=== PATIENT | male | born 1980 | race Caucasian/White ===

== ENCOUNTER 2018-09-06 13:18 | Emergency (ER) | payer MEDICAID, OTHER ==
[2018-09-06 13:36] VITALS: BP 140/77
--- NOTE | 2018-09-06 14:10 | UC ---
Dental HPI - HPI Summary HPI Summary: Pt presents to reporting dental pain right lower jaw. Pt with h/o ppor dentition and infections;. Pt will get dental insurance starting 09/11/2018 Pt denies fevers, chills. Pt has been taking ibuprofen and ambusol. no difficulty with swallowing. no ear pain. no fever, chills. no intraoral edema. pt's medications reviewed this visit - History of Current Complaint Chief Complaint: UCDentalProblem Stated Complaint: ORAL COMPLAINT Time Seen by Provider: 09/06/18 13:43 Hx Obtained From: Patient Pain Intensity: 3 - Allergies/Home Medications Allergies/Adverse Reactions: Allergies Allergy/AdvReac Type Severity Reaction Status Date / Time No Known Allergies Allergy Verified 09/06/18 13:31 Home Medications: Home Medications Benzocaine [Anbesol Maximum Strength] 1 applic MT SEE INSTRUCTIONS PRN 09/06/18 [History Confirmed 09/06/18] Ibuprofen TAB* [Advil TAB*] 800 mg PO Q8H PRN 09/06/18 [History Confirmed ] PMH/Surg Hx/FS Hx/Imm Hx Previously Healthy: Yes - Surgical History Surgical History: Yes Surgery Procedure, Year, and Place: Appendectomy, 1985, [place] - Family History Known Family History: Positive: Other - noncontributory - Social History Occupation: Employed Full-time Lives: With Family Alcohol Use: None Substance Use Type: None Smoking Status (MU): Heavy Every Day Tobacco Smoker Type: Cigarettes Amount Used/How Often: 1 - 1 1/2 PPD Length of Time of Smoking/Using Tobacco: Since Age 11 Have You Smoked in the Last Year: Yes - Immunization History Most Recent Tetanus Shot: 08/26/14 Review of Systems Constitutional: Negative Skin: Negative ENT: Dental Pain All Other Systems Reviewed And Are Negative: Yes Physical Exam - Summary Physical Exam Summary: Vital Signs Reviewed: Yes A+Ox3, no distress Eyes: Conjunctiva Clear, RONALD, EOM intact and full ENT: Hearing grossly normal TM x 2 clear turbinates wnl no TMJ pain, no mastoid pain Pt with poor dentition + TTP #31 broken at gumline with obvious cavity. no fluctuance no erythema no drainage + TTP neck: supple Respiratory: Positive: No respiratory distress, No accessory muscle use Cardiovascular: skin color reflect adequate perfusion Musculoskeletal Exam: WALTON x 4 without difficulty Neurological: Positive: Alert, ambulatory without difficulty Psychological: Positive: Normal Response To Family Skin: Positive: no rash, no ecchymosis Triage Information Reviewed: Yes Vital Signs: Initial Vital Signs Temp 97.1 F 09/06/18 13:30 Pulse 87 09/06/18 13:30 Resp 16 09/06/18 13:30 BP 140/77 09/06/18 13:30 Pulse Ox 99 09/06/18 13:30 Dental Complaint Course/Dx - Course Course Of Treatment: Pt with progressive dental pain x 1 week. Pt with poor dentition - getting insurance next week. Pt wit pain #31. no toxic appearing. Will start pcn. motrin/apap. swish/spit viscous lidocaine. dental list. return precaution - Differential Dx/Diagnosis Provider Diagnoses: dental pain Discharge - Sign-Out/Discharge Documenting (check all that apply): Patient Departure All imaging exams completed and their final reports reviewed: No Studies - Discharge Plan Condition: Stable Disposition: HOME Prescriptions: Lidocaine 2% VISCOUS* 15 ml .SEE ORDER Q6HR PRN #1 btl PRN Reason: dental pain Penicillin VK 500 MG TAB(NF) [Penicillin VK 500 mg Tab] 500 mg PO TID #30 tab Patient Education Materials: Toothache (ED) Referrals: Clifford Vincent PA [Primary Care Provider] - Additional Instructions: - Okay to alternate ibuprofen (Advil, Motrin) 600mg and Tylenol every 3 hours for pain. Take with food. Do NOT take for more than 4-5 days -Swish and spit with warm salt water 3-4 times a day -Take anitbiotics as prescribed until gone - apply numbing medication to your tooth every 6 hours -Stay well hydrated - frequent sips of cold fluids will be soothing to your throat (popsicles, jello, ice cream, ice water) -Contact a clinic or go to the walk in clinic from the list provided to you today. If you develop swelling inside your mouth, difficulty with chewing or any other concerns it is recommended you go to the emergency department for further management - Billing Disposition and Condition Condition: STABLE Disposition: Home
== END 2018-09-06 14:13 | disposition home or self-care (01) ==
LOC: UCCORT 13:18
DX: K08.89 Other specified disorders of teeth and supporting structures (principal); F17.210 Nicotine dependence, cigarettes, uncomplicated
CPT/HCPCS: 99202; G0463

== ENCOUNTER 2018-10-01 17:53 | Emergency (ER) | payer SELFPAY ==
[2018-10-01 18:16] VITALS: BP 138/80
--- NOTE | 2018-10-01 18:17 | UC ---
Dental HPI - HPI Summary HPI Summary: 37-year-old male here with a chief complaint of dental pain. Started several days ago. Denies and ibuprofen and Orajel. These helped with the pain but then the pain comes back. Patient's had infection in his teeth before to use gets antibiotics which helps. He just recently got dental insurance and he has an appointment set up for November 2018 with a dentist. No fevers or chills feels well otherwise. - History of Current Complaint Stated Complaint: DENTAL Time Seen by Provider: 10/01/18 18:07 - Allergies/Home Medications Allergies/Adverse Reactions: Allergies Allergy/AdvReac Type Severity Reaction Status Date / Time No Known Allergies Allergy Verified 10/01/18 18:13 Home Medications: Home Medications Acetaminophen [Acetaminophen Extra Strength] 1,000 mg PO Q6H PRN 10/01/18 [ History Confirmed 10/01/18] PMH/Surg Hx/FS Hx/Imm Hx Previously Healthy: Yes - Surgical History Surgical History: Yes Surgery Procedure, Year, and Place: Appendectomy, 1985, [place] - Family History Known Family History: Positive: Other - noncontributory Negative: Diabetes - Social History Alcohol Use: None Substance Use Type: None Smoking Status (MU): Heavy Every Day Tobacco Smoker Type: Cigarettes Amount Used/How Often: 1 - 1 1/2 PPD Length of Time of Smoking/Using Tobacco: Since Age 11 Have You Smoked in the Last Year: Yes - Immunization History Most Recent Tetanus Shot: 08/26/14 Review of Systems All Other Systems Reviewed And Are Negative: Yes Constitutional: Positive: Negative Skin: Positive: Negative Eyes: Positive: Negative ENT: Positive: Dental Pain Respiratory: Positive: Negative Cardiovascular: Positive: Negative Gastrointestinal: Positive: Negative Motor: Positive: Negative Neurovascular: Positive: Negative Musculoskeletal: Positive: Negative Neurological: Positive: Negative Psychological: Positive: Negative Is Patient Immunocompromised?: No Physical Exam Triage Information Reviewed: Yes Appearance: Well-Appearing, No Pain Distress, Well-Nourished Vital Signs Reviewed: Yes Eye Exam: Normal Eyes: Positive: Conjunctiva Clear ENT: Positive: Pharynx normal, Uvula midline. Negative: Nasal congestion, Nasal drainage Dental: Positive: Other: - Patient has dental caries right upper and lower molars. He also has gingival swelling in these areas. Neck exam: Normal Neck: Positive: Supple Respiratory Exam: Normal Respiratory: Positive: Lungs clear, Normal breath sounds, No respiratory distress Cardiovascular Exam: Normal Cardiovascular: Positive: RRR Musculoskeletal Exam: Normal Musculoskeletal: Positive: Strength Intact, ROM Intact Neurological Exam: Normal Neurological: Positive: Alert, Muscle Tone Normal Psychological Exam: Normal Psychological: Positive: Age Appropriate Behavior Skin Exam: Normal Dental Complaint Course/Dx - Differential Dx/Diagnosis Provider Diagnoses: DENTAL INFECTION Discharge - Sign-Out/Discharge Documenting (check all that apply): Patient Departure All imaging exams completed and their final reports reviewed: No Studies - Discharge Plan Condition: Stable Disposition: HOME Prescriptions: Penicillin VK 500 MG TAB(NF) [Penicillin VK 500 mg Tab] 500 mg PO QID #40 tab Patient Education Materials: Toothache (ED) Forms: *Work Release Referrals: Clifford Vincent PA [Primary Care Provider] - Additional Instructions: FOLLOW UP WITH YOUR DENTIST. GET RECHECKED FOR ANY WORSENING OF YOUR CONDITION OR QUESTIONS OR CONCERNS. - Billing Disposition and Condition Condition: STABLE Disposition: Home
== END 2018-10-01 18:24 | disposition home or self-care (01) ==
LOC: UCCORT 17:53
DX: K04.7 Periapical abscess without sinus (principal); F17.210 Nicotine dependence, cigarettes, uncomplicated
CPT/HCPCS: 99212; G0463

== ENCOUNTER 2020-01-19 08:55 | Emergency (ER) | payer SELFPAY ==
[2020-01-19 09:17] VITALS: BP 110/72
[2020-01-19] MEDS ORDERED: Ondansetron ODT TAB* 4 MG PO ONE (10:04)
--- NOTE | 2020-01-19 10:22 | UC ---
FLU HPI - HPI Summary HPI Summary: 39-year-old male presents with complaints of subjective fever, general malaise, sore throat, nausea, and vomiting since last night. Reports all 3 of his children were diagnosed with strep throat in the past week. Denies headache, ear pain, dysphagia, chest pain, shortness of breath, abdominal pain, back or flank pain, diarrhea, dysuria, frequency, urgency, or hematuria. - History of Current Complaint Chief Complaint: UCGeneralIllness Stated Complaint: VOMITTING,SORE THROAT Time Seen by Provider: 01/19/20 10:04 Hx Obtained From: Patient Pain Intensity: 0 - Allergy/Home Medications Allergies/Adverse Reactions: Allergies Allergy/AdvReac Type Severity Reaction Status Date / Time No Known Allergies Allergy Verified 01/19/20 09:13 Home Medications: Home Medications Gabapentin CAP(*) [Neurontin 300 CAP(*)] 600 mg PO BID 01/19/20 [History Confirmed 01/19/20] Ondansetron [Ondansetron Odt] 4 mg PO Q6HR PRN #8 tab.rapdis 01/19/20 [Rx] PMH/Surg Hx/FS Hx/Imm Hx Previously Healthy: Yes - Surgical History Surgical History: Yes Surgery Procedure, Year, and Place: Appendectomy, 1985, [place] - Family History Known Family History: Negative: Diabetes - Social History Occupation: Employed Full-time Lives: With Family Alcohol Use: None Substance Use Type: None Smoking Status (MU): Heavy Every Day Tobacco Smoker Type: Cigarettes Amount Used/How Often: 1 - 1 1/2 PPD Length of Time of Smoking/Using Tobacco: Since Age 11 Have You Smoked in the Last Year: Yes - Immunization History Most Recent Tetanus Shot: 08/26/14 Review of Systems All Other Systems Reviewed And Are Negative: Yes Constitutional: Positive: Fever Skin: Negative: Rash Eyes: Negative: Drainage, Eye Redness ENT: Positive: Sore Throat. Negative: Ear Ache, Nasal Discharge, Sinus Congestion, Sinus Pain/Tenderness Respiratory: Negative: Shortness Of Breath, Cough Cardiovascular: Negative: Palpitations, Chest Pain Gastrointestinal: Positive: Vomiting, Nausea. Negative: Abdominal Pain, Diarrhea Genitourinary: Negative: Dysuria, Hematuria, Frequency, Urgency Neurological/Mental Status: Positive: Negative Is Patient Immunocompromised?: No Physical Exam - Summary Physical Exam Summary: GENERAL APPEARANCE: Well developed, well nourished, alert and cooperative, and appears to be in no acute distress. EYES: Conjunctiva clear. No drainage. EARS: External auditory canals and tympanic membranes clear, hearing grossly intact. NOSE: No nasal discharge. THROAT: Pharyngeal erythema without tonsilar inflammation, swelling, exudate, or lesions. Uvula midline. NECK: Neck supple, non-tender without lymphadenopathy. CARDIAC: Normal S1 and S2. No S3, S4 or murmurs. Rhythm is regular. There is no peripheral edema, cyanosis or pallor. Extremities are warm and well perfused. Capillary refill is less than 2 seconds. Peripheral pulses intact. LUNGS: Clear to auscultation without rales, rhonchi, wheezing or diminished breath sounds. ABDOMEN: Positive bowel sounds. Soft, nondistended, nontender. No guarding or rebound. No masses or hepatosplenomegally. MUSKULOSKELETAL: ROM intact to all extremities. No joint erythema or tenderness. Normal muscular development. Normal gait. SKIN: Skin normal color, texture and turgor with no lesions or eruptions. Triage Information Reviewed: Yes Vital Signs: Initial Vital Signs Temp 98 F 01/19/20 09:09 Pulse 76 01/19/20 09:09 Resp 18 01/19/20 09:09 BP 110/72 01/19/20 09:09 Pulse Ox 99 01/19/20 09:09 Vital Signs Reviewed: Yes Flu Course/Dx - Course Course Of Treatment: 39-year-old male presents with complaints of subjective fever, general malaise, sore throat, nausea, and vomiting since last night. Reports all 3 of his children were diagnosed with strep throat in the past week. Denies headache, ear pain, dysphagia, chest pain, shortness of breath, abdominal pain, back or flank pain, diarrhea, dysuria, frequency, urgency, or hematuria. Afebrile. Vital signs stable. Patient had pharyngeal erythema without tonsillar swelling or exudate, no cervical lymphadenopathy, soft, nondistended, nontender abdomen, and otherwise unremarkable exam. He was given ondansetron 8 mg PO for his nausea with improvement in symptoms. Rapid strep test and rapid flu tests were negative. Reviewed results with the patient. Recommending conservative treatment for acute nausea and vomiting and pharyngitis. He was provided a prescription for ondansetron 4 mg every 6 hours as needed for nausea and vomiting and was encouraged to push fluids. He is to return here or follow up with primary care in 3-5 days if symptoms are not improving. Anticipatory guidance and warning symptoms are reviewed with the patient. Verbalizes understanding and agrees plan of care. - Differential Dx/Diagnosis Differential Diagnosis/HQI/PQRI: Bronchitis, Influenza, Pneumonia, Upper Respiratory Infection, Other - Pharyngitis, tonsilitis, peritonsilar abcess, gastroenteritis Provider Diagnosis: Nausea & vomiting, Pharyngitis Discharge ED - Sign-Out/Discharge Documenting (check all that apply): Patient Departure All imaging exams completed and their final reports reviewed: No Studies - Discharge Plan Condition: Stable Disposition: HOME Prescriptions: Ondansetron [Ondansetron Odt] 4 mg PO Q6HR PRN #8 tab.rapdis PRN Reason: Nausea/Vomiting Patient Education Materials: Pharyngitis (ED) Forms: *Work Release Referrals: No Primary Care Phys,NOPCP [Primary Care Provider] - [facility] [Outside] Additional Instructions: The rapid strep test and rapid flu test performed in the clinic today were negative. Take ondansetron 4 mg 1 tablet every 6 hours as needed for nausea or vomiting. You received a dose of this medication in the clinic at around 10:00 this morning. Drink plenty of fluids. Try to drink small amounts frequently to avoid filling your stomach to full which can cause vomiting. If you are still having vomiting, start with a clear liquid diet including soup broths, Jello, popsicles, and marshall-pretty with carbonation stirred out of it. You may then advance to a bland diet including saltine crackers, toast, bananas , rice, and applesauce. Then return to a normal diet as tolerated. Use salt water gargles several times a day. Take over the counter acetaminophen (Tylenol) or ibuprofen (Advil, Motrin) according to directions as needed for pain or fever. You may also use Chloraseptic spray or Cepacol lonzenges according to directions which contain a numbing medication and can provide some temporary relief from your sore throat. Follow up here or with primary care in 3-5 days if symptoms persist. I have provided you with the contact information for the [facility] physician referral service if you need assistance with establishing with her provider. Seek immediate medical attention in the emergency room if you develop fever greater than 100.5 F, have severe abdominal pain, persistent vomiting, blood in your vomit or stool, or any worsening of symptoms. - Billing Disposition and Condition Condition: STABLE Disposition: Home
[2020-01-19 10:32] LABS: Influenza A Molecular Negative (Negative); Influenza B Molecular Negative (Negative)
== END 2020-01-19 10:45 | disposition home or self-care (01) ==
LOC: UCCORT 08:55
DX: J02.9 Acute pharyngitis, unspecified (principal); R11.2 Nausea with vomiting, unspecified; F17.210 Nicotine dependence, cigarettes, uncomplicated
CPT/HCPCS: 87651; 99212; A9270-GY; G0463